=== PATIENT | female | born 1980 | race Asian ===

== ENCOUNTER 2019-11-12 06:33 | Inpatient (IN) | payer OTHER ==
[~2019-11-12] VITALS: Ht 162.6 cm; Wt 57.6 kg
[2019-11-12] MEDS ORDERED: DEXT 5%/LR + PITOCIN 20UNITS/L 1,000 ML IV SCH (06:58)
[2019-11-12] MEDS ORDERED: RHO(D) IMMUNE GLOBULIN 300 MCG/SYR IM PRN (07:00)
[2019-11-12] MEDS ORDERED: IBUPROFEN 400MG TABLET PO PRN (07:00)
[2019-11-12] MEDS ORDERED: DIPHENHYDRAMINE 25MG CAPSULE PO PRN (07:00)
[2019-11-12] MEDS ORDERED: BENZOCAINE/LANOLIN/ALOE VERA SPRAY TOP PRN (07:00)
[2019-11-12] MEDS ORDERED: ACETAMINOPHEN WITH CODEINE 300/30MG TABLET PO PRN (07:00)
[2019-11-12] MEDS ORDERED: LANOLIN OINT 7GM TUBE TOP PRN (07:00)
[2019-11-12] MEDS ORDERED: BISACODYL 10MG SUPP PR PRN (07:00)
[2019-11-12] MEDS ORDERED: HEMORRHOIDAL SUPP PR PRN (07:00)
[2019-11-12] MEDS ORDERED: GLYCERIN/WITCH HAZEL LEAF MEDICATED PAD TOP PRN (07:00)
[2019-11-12] MEDS ORDERED: PREN-52 MT (07:50)
[2019-11-12] MEDS ORDERED: LIDOCAINE HCL 1% 20ML VIAL (Pyxis) INJ INFIL NR (08:00)
[2019-11-12 08:50] LABS: BASOPHILS % 0.1 % (0.0-2.0); EOSINOPHILS % 0.1 % (0.0-5.0); HEMATOCRIT. 39.1 % (36.0-48.0); HEMOGLOBIN. 13.2 g/dL (12.0-16.0); LYMPHOCYTES % 7.6 % (20.0-50.0); MEAN CORPUSCULAR VOLUME 88.8 fL (81.0-99.0); MEAN PLATELET VOLUME 8.7 fl (7.4-10.4); MONOCYTES % 7.1 % (2.0-8.0); NEUTROPHILS % 85.1 % (40.0-76.0); PLATELET 219 x1000/uL (130-400); RED CELL DISTRIBUTION WIDTH 14.1 % (11.6-14.6)
[2019-11-12 08:53] LABS: INR 0.9; PARTIAL THROMBOPLASTIN TIME 26.6 sec (23.4-31.0); PROTHROMBIN TIME 9.5 sec (9.6-11.0)
[2019-11-12 10:00] VITALS: BP 118/69
[2019-11-12 10:30] VITALS: BP 110/66
[2019-11-12] MEDS: PRENATAL VIT/FE FUMARATE/FA TABLET PO SCH (11:53)
[2019-11-12] MEDS: IBUPROFEN 800MG TABLET PO PRN ×2 (11:53→21:53)
[2019-11-12] MEDS ORDERED: OXYTOCIN 10 UNITS/ML 1ML ONE (12:09)
[2019-11-12 12:21] LABS: CLARITY URINE CLOUDY (CLEAR); COLOR URINE BLOODY (YELLOW); KETONES URINE 2+ (NEGATIVE); LEUKOCYTE ESTERASE URINE 3+ (NEGATIVE); NITRITE URINE POSITIVE (NEGATIVE); OCCULT BLOOD URINE 3+ (NEGATIVE); PH URINE 6.5 (4.5-8.0); PROTEIN URINE 3+ (NEGATIVE)
[2019-11-12 12:32] LABS: *AMPHETAMINES SCREEN URINE NEGATIVE (NEGATIVE); *BARBITURATES SCREEN URINE NEGATIVE (NEGATIVE); *BENZODIAZEPINES SCREEN URINE NEGATIVE (NEGATIVE); *COCAINE SCREEN URINE NEGATIVE (NEGATIVE)
[2019-11-12 12:33] LABS: CANNABINOID URINE SCREEN NEGATIVE (NEGATIVE); METHADONE URINE SCREEN NEGATIVE (NEGATIVE); OPIATES URINE SCREEN NEGATIVE (NEGATIVE); PHENCYCLIDINE URINE SCREEN NEGATIVE (NEGATIVE)
[2019-11-12 14:59] VITALS: BP 98/52
[2019-11-12 19:35] VITALS: BP 106/52
[2019-11-12] MEDS ORDERED: TETANUS, DIPHTHERIA, PERTUSSIS VAC/PF 0.5ML (>7YR OLD) IM ONE (20:00)
[2019-11-12] MEDS: CEFAZOLIN 2,000 MG in DEXT 5% WATER 100 ML IV SCH (21:42)
[2019-11-12] MEDS: DOCUSATE SODIUM 100MG CAPSULE PO SCH (21:52)
[2019-11-12 23:45] VITALS: BP 110/60
[2019-11-13] MEDS: IBUPROFEN 800MG TABLET PO PRN ×2 (06:30→13:24)
[2019-11-13] MEDS: CEFAZOLIN 2,000 MG in DEXT 5% WATER 100 ML IV SCH ×2 (06:41→13:25)
[2019-11-13 07:09] LABS: BASOPHILS % 0.1 % (0.0-2.0); EOSINOPHILS % 0.5 % (0.0-5.0); HEMATOCRIT. 35.5 % (36.0-48.0); HEMOGLOBIN. 12.1 g/dL (12.0-16.0); LYMPHOCYTES % 12.8 % (20.0-50.0); MEAN CORPUSCULAR HEMOGLOBIN 29.8 pg (28.0-32.0); MEAN CORPUSCULAR VOLUME 87.2 fL (81.0-99.0); MEAN PLATELET VOLUME 8.4 fl (7.4-10.4); MONOCYTES % 8.6 % (2.0-8.0); PLATELET 184 x1000/uL (130-400); RED BLOOD CELL COUNT 4.07 mill/uL (4.2-5.4)
[2019-11-13] MEDS ORDERED: FERROUS SULFATE 325MG TABLET PO SCH (07:30)
[2019-11-13 08:00] VITALS: BP 114/64
[2019-11-13] MEDS: PRENATAL VIT/FE FUMARATE/FA TABLET PO SCH (11:30)
[2019-11-13 13:30] VITALS: BP 110/62
[2019-11-13] MEDS: DOCUSATE SODIUM 100MG CAPSULE PO SCH (21:39)
[2019-11-13 22:00] VITALS: BP 119/60
[2019-11-14] MEDS ORDERED: IBUP-2030 PO (07:13)
[2019-11-14 08:00] VITALS: BP 113/62
[2019-11-14] MEDS: PRENATAL VIT/FE FUMARATE/FA TABLET PO SCH (09:34)
[2019-11-14] MEDS: IBUPROFEN 800MG TABLET PO PRN (09:34)
[2019-11-17 19:10] LABS: HEPATITIS B SURFACE ANTIGEN NEGATIVE
== END 2019-11-14 12:15 | disposition home or self-care (01) | DRG 560 ==
LOC: OBSVTOIN 06:33 → 8 EST LDRP 06:33 → 8EST 09:25
PROVIDERS: ADMIT Specialist; ATTEND Specialist
PROC: 10E0XZZ Delivery of Products of Conception, External Approach (ICD-10-PCS; principal; 2019-11-12)
PROC: 0HQ9XZZ Repair Perineum Skin, External Approach (ICD-10-PCS; 2019-11-12)
DX: O69.81X0 Labor and delivery complicated by cord around neck, without compression, not applicable or unspecified (principal); O70.0 First degree perineal laceration during delivery; Z3A.38 38 weeks gestation of pregnancy; Z37.0 Single live birth
CPT/HCPCS: 36415; 80305; 81003; 85025; 86592; 86703; 86762; 86850; 86900; 87340; 90715; 99281; J0690; J2590; J3490; J7060